=== PATIENT | male | born 2005 | race African-American/Black ===

== ENCOUNTER 2023-12-08 08:39 | Observation (INO) | payer OTHER, SELFPAY ==
[2023-12-08] VITALS (14 sets, daily range): BP systolic 100–144; BP diastolic 36–86; PULSE 56–79; RESP 12–18; TEMP 36.2–36.3; O2SAT 94–100; BMI 26.4
--- NOTE | 2023-12-08 08:46 | DI.US.S_ITS ---
PROCEDURE: US SCROTUM INDICATIONS: left testicular pain TECHNIQUE: Real-time scanning was performed of the scrotum and testicles, with image documentation. Color and pulse Doppler interrogation was performed of both testicles. COMPARISON: None. FINDINGS: Right: Testicle is normal in size at 4.8 x 2.0 x 3.3 cm, and homogenous in echotexture. Epididymis is normal in overall size and morphology. No hydrocele or varicoceles. Left: Testicle is normal in size at 4.6 x 2.3 x 3.2 cm, and homogeneous in echotexture. Epididymis is normal in overall size and morphology. No hydrocele or varicoceles. A punctate calculus is present in the testis, likely secondary to prior trauma. Doppler: Color and pulse Doppler demonstrate normal and symmetric arterial flow in the right testis. There is no flow in the left testis. Other: The scrotal wall is thickened at 6 millimeter bilaterally, likely secondary to reactive edema. IMPRESSION: Acute left testicular torsion without evidence of testicular edema at this time. These findings were communicated by the florist designer to the ordering provider at the time of the dictation. Dictated by: Billy Merchant M.D. on 12/08/2023 at 9:21 Approved by: Billy Merchant M.D. on 12/08/2023 at 9:31
--- NOTE | 2023-12-08 08:54 | ED_ITS ---
HPI - Male Genitourinary General Chief complaint: Urogenital-Male Stated complaint: testicular torsion Time Seen by Provider: 12/08/23 08:46 Source: patient Mode of arrival: Ambulatory History of Present Illness HPI Narrative: 18-year-old healthy male presents today with sudden onset left testicular pain. He reports that he was fine yesterday. He denies any trauma. Not sexually active not concerned for STDs. Is active reports that he does exercise and work out but not heavy lifting. Has significant left testicular pain. Some lower abdominal pain minimal back pain. Has some nausea that comes and goes. Pain to palpation on left testicle. Related Data Previous Rx's Medication Instructions Recorded acetaminophen 325 mg tablet 650 mg (2 x 325 mg) PO Q6H PRN 12/08/23 (Tylenol) mild pain (scale score 1-4) #60 tabs ibuprofen 800 mg tablet 800 mg PO Q8H PRN pain (scale 12/08/23 score 4-6) #30 tabs oxycodone 5 mg tablet 5 mg PO Q8H PRN pain (scale score 12/08/23 7-10) #10 tabs Allergies Allergy/AdvReac Type Severity Reaction Status Date / Time No Known Drug Allergies Allergy Verified 12/08/23 08:44 Patient History Social History household members: spouse Smoking Status: Never smoker Smoking Status: Never smoker alcohol intake frequency: 0-2 drinks per day Substance Use Type: does not use Exam Initial Vital Signs Initial Vital Signs: Vital Signs Temperature 97.1 F L 12/08/23 08:41 Pulse Rate 60 12/08/23 08:41 Respiratory Rate 18 12/08/23 08:41 Blood Pressure 126/59 L 12/08/23 08:41 Pulse Oximetry 100 12/08/23 08:41 Oxygen Delivery Method Room Air 12/08/23 08:41 GENERAL: Alert 18-year-old male appears very uncomfortable CARDIOVASCULAR: peripheral pulses in tact, cap refill <2 sec RESPIRATORY: No respiratory distress, speaks in full sentences without difficulty ABDOMEN: Mild left lower quadrant pain no guarding or rebound : Minimal left flank pain, nurse Sylvia present for exam no pain on left testicle itself there has no abnormality testes are in anatomical position he does have significant pain in inguinal area with some bulging. No erythema. Right side no testicular pain no hernia EXTREMITIES: Normal range of motion, no clubbing or edema. Neurovascularly intact NEUROLOGICAL: Cranial nerves II through XII grossly intact. Normal gait and speech. SKIN: Warm, dry, no petechiae, no rashes or lesions. Course Orders Ordered: Discontinued Medications Acetaminophen (Acetaminophen 325 Mg Tablet) 975 mg PO NOW ONE Stop: 12/08/23 11:33 Acetaminophen (Acetaminophen 325 Mg Tablet) 975 mg PO Q6H PRN PRN Reason: Pain, Mild (1-3) Bacitracin (Bacitracin 28 Gm Oint) 1 applic TOP NOW ONE Stop: 12/08/23 11:43 Last Admin: 12/08/23 11:42 Dose: 1 applic Documented By: KEVON Benzocaine (Benzocaine/Menthol 1 Alin Pkt) 1 each PO PRN PRN PRN Reason: Sore Throat Bupivacaine HCl (Bupivacaine 0.25% (Pf) Vial) 30 ml INJ NOW ONE Stop: 12/08/23 11:37 Last Admin: 12/08/23 11:36 Dose: 20 ml Documented By: KEVON Hydromorphone HCl (Hydromorphone 1 Mg Inj) 1 mg IV NOW ONE Stop: 12/08/23 08:47 Last Admin: 12/08/23 08:57 Dose: 1 mg Documented By: OTTO Hydromorphone HCl (Hydromorphone 0.5 Mg Inj) 0.5 mg IV NOW ONE Stop: 12/08/23 09:32 Last Admin: 12/08/23 09:50 Dose: 0.5 mg Documented By: SHIMA Hydromorphone HCl (Hydromorphone 1 Mg Inj) 0 mg IV Q5MIN PRN PRN Reason: Pain, Mild (1-3) Hydromorphone HCl (Hydromorphone 1 Mg Inj) 0 mg IV Q5MIN PRN PRN Reason: Pain, Moderate (4-6) Hydromorphone HCl (Hydromorphone 1 Mg Inj) 0.5 mg IV Q2H PRN PRN Reason: Breakthrough Pain Lactated Ringer's (Lactated Ringers) 1,000 mls @ 42 mls/hr IV CONT OLE Last Admin: 12/08/23 12:31 Dose: 42 mls/hr Documented By: Infusion: 12/08/23 12:30 Dose: Infused Documented By: Admin: 12/08/23 10:15 Dose: 42 mls/hr Documented By: DAVID Ketorolac Tromethamine (Ketorolac 30 Mg/Ml Vial) 15 mg IV NOW ONE Stop: 12/08/23 08:53 Last Admin: 12/08/23 08:58 Dose: 15 mg Documented By: OTTO Lidocaine HCl (Lidocaine 1% 20 Ml) 20 ml INJ NOW ONE Stop: 12/08/23 11:37 Last Admin: 12/08/23 11:36 Dose: 20 ml Documented By: KEVON Ondansetron HCl (Ondansetron 4 Mg/2 Ml Inj) 4 mg IV NOW ONE Stop: 12/08/23 08:53 Last Admin: 12/08/23 08:58 Dose: 4 mg Documented By: OTTO Ondansetron HCl (Ondansetron 4 Mg/2 Ml Inj) 4 mg IV Q4H PRN PRN Reason: Nausea And Vomiting Oxycodone HCl (Oxycodone Ir 5 Mg Tablet) 5 mg PO PACUNOW PRN PRN Reason: Mild or moderate pain Oxycodone HCl (Oxycodone Ir 5 Mg Tablet) 5 mg PO Q4H PRN PRN Reason: Pain, Moderate (4-6) Oxycodone HCl (Oxycodone Ir 10 Mg Tablet) 10 mg PO Q4HR PRN PRN Reason: Pain, Severe (7-10) Vital Signs Vital signs: Vital Signs - 8 hr 12/08/23 08:41 Temperature 97.1 F L Pulse Rate 60 Respiratory Rate 18 Blood Pressure 126/59 L Pulse Oximetry 100 Oxygen Delivery Method Room Air MDM - Male Genitourinary Lab Data 12/08/23 08:50 12/08/23 08:50 Labs: Lab Results 12/08/23 Range/Units 08:50 WBC 13.8 H (4.5-11.0) X10^3/uL RBC 4.97 (4.5-5.9) X10^6/uL Hgb 15.3 (13.5-17.5) g/dL Hct 45.3 (41-53) % MCV 91.2 (80-100) fL MCH 30.7 (26-34) PG MCHC 33.7 (30-36) % RDW 12.6 (11.6-14.8) % Plt Count 146 L (150-400) X10^3/uL Neut % (Auto) 77.1 H (50-75) % Lymph % (Auto) 13.3 L (25-40) % [place] % (Auto) 7.8 (3-14) % Eos % (Auto) 1.4 L (2-4) % Baso % (Auto) 0.4 (0-2) % Neut # (Auto) 62834 H (8255-3263) /uL Lymph # (Auto) 1800 (6753-0864) /uL [place] # (Auto) 1100 H (0-900) /uL Eos # (Auto) 200 (0-450) /uL Baso # (Auto) 100 (0-100) /uL Sodium 135 L (137-145) mmol/L Potassium 3.6 (3.4-5.1) mmol/L Chloride 101 (98-107) mmol/L Carbon Dioxide 20 L (22-32) mmol/L BUN 12 (9-20) mg/dL Creatinine 1.13 (0.66-1.25) mg/dL Estimated GFR > 60 (>60) mL/min BUN/Creatinine Ratio 10.6 (6-22) Glucose 137 H (70-100) mg/dL Calcium 9.3 (8.4-10.2) mg/dL Total Bilirubin 0.5 (0.2-1.3) mg/dL AST 49 (17-59) IU/L ALT 27 (<50) IU/L Alkaline Phosphatase 57 (38-126) U/L Total Protein 8.0 (6.3-8.2) g/dL Albumin 4.7 (3.5-5.0) g/dL Globulin 3.3 (1.7-4.1) g/dL Albumin/Globulin Ratio 1.4 (1.0-2.8) MDM Narrative Medical decision making narrative: 18-year-old male with sudden-onset left testicular pain. Initial concern was for testicular torsion. No erythema patient does not have concerns for STD. Ultrasound confirms testicular torsion. Dr. Milian, immediately called with tech report of testicular torsion. History exam and preliminary report or consistent with diagnosis. Dr. Milian, in ED to see and evaluate patient will take patient to start Blood work reviewed leukocytosis 13.8, chemistry panel shows a sodium 135 potassium 3.6 qt no one bicarb 20 BUN 12 creatinine 1.1 Patient has not urinated in the emergency depart Pain is much better after Dilaudid and Toradol Discharge Plan Departure Patient Disposition: Admitted to Surgery Clinical Impression: Testicular torsion Admit Date/Time: 12/08/23 10:13 Admit Provider: Jayjay Milian
[2023-12-08] MEDS: HYDROMORPHONE 1 MG INJ IV (08:57)
[2023-12-08] MEDS: KETOROLAC 30 MG/ML VIAL 15 MG IV (08:58)
[2023-12-08] MEDS: ONDANSETRON 4 MG/2 ML INJ IV (08:58)
[2023-12-08 09:01] LABS: Add Manual Diff / Slide Review NO; Basophils Absolute Auto 100 /uL (0-100); Basophils Percent Auto 0.4 % (0-2); Eosinophils Absolute Auto 200 /uL (0-450); Eosinophils Percent Auto 1.4 % (2-4); Hematocrit 45.3 % (41-53); Hemoglobin 15.3 g/dL (13.5-17.5); Lymphocytes Absolute Auto 1800 /uL (1100-4500); Lymphocytes Percent Auto 13.3 % (25-40); Mean Corpuscular HGB Conc 33.7 % (30-36); Mean Corpuscular Hemoglobin 30.7 PG (26-34); Mean Corpuscular Volume 91.2 fL (80-100); Monocytes Absolute Auto 1100 /uL (0-900); Monocytes Percent Auto 7.8 % (3-14); Neutrophils Absolute Auto 10700 /uL (1500-7000); Neutrophils Percent Auto 77.1 % (50-75); Platelet Count 146 X10^3/uL (150-400); Red Blood Cell Count 4.97 X10^6/uL (4.5-5.9); Red Cell Distribution Width 12.6 % (11.6-14.8); White Blood Cell Count 13.8 X10^3/uL (4.5-11.0)
[2023-12-08 09:28] LABS: Alanine Aminotransferase 27 IU/L (<50); Albumin 4.7 g/dL (3.5-5.0); Albumin Globulin Ratio 1.4 (1.0-2.8); Alkaline Phosphatase 57 U/L (38-126); Aspartate Aminotransferase 49 IU/L (17-59); BUN Creatinine Ratio 10.6 (6-22); Bilirubin Total 0.5 mg/dL (0.2-1.3); Blood Urea Nitrogen 12 mg/dL (9-20); Calcium 9.3 mg/dL (8.4-10.2); Carbon Dioxide 20 mmol/L (22-32); Chloride 101 mmol/L (98-107); Estimated Glomerular Filt Rate > 60 mL/min (>60); Globulin 3.3 g/dL (1.7-4.1); Glucose 137 mg/dL (70-100); HEMOLYSIS 48 (0-50); Potassium 3.6 mmol/L (3.4-5.1); Sodium 135 mmol/L (137-145)
[2023-12-08] MEDS: HYDROMORPHONE 0.5 MG INJ IV (09:50)
[2023-12-08] MEDS: LACTATED RINGERS 1,000 ML 42 ML IV ×2 (10:15→12:31)
--- NOTE | 2023-12-08 10:27 | P.HP_ITS ---
History of Present Illness History of Present Illness Date Patient Seen: 12/08/23 Time Patient Seen: 09:45 Chief complaint: testicular torsion Narrative: 18 y/o M presents to ED for evaluation of severe left testicular pain. Pain started at 0400 this morning. Pain was initially a 9/10 and associated with nausea/vomiting. He presented to his PCM at [facility] and was instructed to present to a local ED as soon as possible. His evaluation in the ED was notable for AFVSS, a WBC of 14 and a scrotal US that notes no flow to the left testicle. He otherwise denies any history and/or recent trauma. [facility] Social History Smoking Status: Never smoker Meds Home Medications and Allergies Home Medications Medication Instructions Recorded Confirmed Type No Known Home Medications 12/08/23 12/08/23 History Allergies Allergy/AdvReac Type Severity Reaction Status Date / Time No Known Drug Allergies Allergy Verified 12/08/23 08:44 Review of Systems Review of Systems Narrative: CONSTITUTIONAL: Denies weight loss, fevers, chills. HEENT: Denies change in vision, hearing. RESP: Denies SOB, cough. CV: Denies palpations, CP. GI: Denies abodminal pain, nausea, vomiting, diarrhea. : Denies dysuria, hematuria, inability to void. MSK: Denies myalgia, joint pain. SKIN: Denies rash, pruritus. NEURO: Denies headache, syncope. PSYCH: Denies recent change in mood, anxiety, depression. Exam Vital Signs (past 8 hours): - 12/08/23 08:41 12/08/23 08:46 12/08/23 08:49 Temperature 97.1 F L Pulse Rate 60 60 Respiratory Rate 18 Blood Pressure 126/59 L 144/86 H Pulse Oximetry 100 100 Oxygen Delivery Method Room Air 12/08/23 08:49 12/08/23 09:00 12/08/23 09:30 Temperature Pulse Rate 61 59 L 60 Respiratory Rate Blood Pressure Pulse Oximetry 100 100 100 Oxygen Delivery Method 12/08/23 10:00 12/08/23 10:25 12/08/23 10:25 Temperature Pulse Rate 66 71 Respiratory Rate Blood Pressure 119/55 L Pulse Oximetry 98 99 Oxygen Delivery Method Oxygen Delivery Method Room Air Narrative Exam Narrative: GEN: Alert and oriented X3. No acute distress. Well-nourished. EYES: PERRLA, EOMI. HENT: Moist mucus membranes, no scleral icterus, normal neck ROM. RESP: Unlabored breathing, equal rise and fall of chest bilaterally, no cyanosis appreciated. CV: No peripheral edema, unremarkable heart rate. ABD: Soft, non-tender, non-distended, no palpable masses. : Unremarkable penis, no urethral discharge, no meatal stenosis. Bilaterally descended testicles, right testicle firm, no testicular masses. Left testicle indurated and tender to palpation, no testicular masses. EXT: No edema, clubbing or cyanosis. SKIN: No rashes or lesions. NEURO: No focal neurologic deficits, CN II-XII grossly intact. PSYCH: Cooperative, appropriate mood and affect. Objective Labs 12/08/23 08:50 12/08/23 08:50 Labs: Laboratory Results - last 24 hr 12/08/23 08:50 WBC 13.8 H RBC 4.97 Hgb 15.3 Hct 45.3 MCV 91.2 MCH 30.7 MCHC 33.7 RDW 12.6 Plt Count 146 L Neut % (Auto) 77.1 H Lymph % (Auto) 13.3 L [place] % (Auto) 7.8 Eos % (Auto) 1.4 L Baso % (Auto) 0.4 Neut # (Auto) 32825 H Lymph # (Auto) 1800 [place] # (Auto) 1100 H Eos # (Auto) 200 Baso # (Auto) 100 Sodium 135 L Potassium 3.6 Chloride 101 Carbon Dioxide 20 L BUN 12 Creatinine 1.13 Estimated GFR > 60 BUN/Creatinine Ratio 10.6 Glucose 137 H Calcium 9.3 Total Bilirubin 0.5 AST 49 ALT 27 Alkaline Phosphatase 57 Total Protein 8.0 Albumin 4.7 Globulin 3.3 Albumin/Globulin Ratio 1.4 Assessment & Plan Assessment and plan (1) Testicular torsion: Status: Acute Plan: 18 y/o M noted to have imaging and physical examination consistent w/ an acute left testicular torsion. Discussed the emergent need for surgery to include a detorsion of the left testicle as well as a possible bilateral orchidopexy and possible left orchiectomy. Discussed risks of the procedure to include pain, bleeding, infection, atrophy or loss of the testicle due to compromised blood supply, inadvertent injury to either spermatic cord leading to atrophy or loss of either testicle, poor cosmesis, wound dehiscence and need for additional procedures. He indicated understanding and signed the informed consent. Time-Based Coding :: [TOTAL MINUTES] spent with patient and on the chart (including review of chart, obtaining history, exam, reviewing outside data, placing orders, documenting exam and treatment plan, and counseling patient) on [DATE]. PROFEE Charge Codes Initial inpatient/observation care: 90144
--- NOTE | 2023-12-08 11:27 | SUR.OPER ---
Supine on padded OR bed, head on pillow, arms secured on padded arm boards at <90 degrees abduction, legs uncrossed, safety belt at thigh, tape over blanket over lower legs.
[2023-12-08] MEDS: BUPIVACAINE 0.25% (PF) VIAL 30 ML INJ (11:36)
[2023-12-08] MEDS: LIDOCAINE 1% 20 ML INJ (11:36)
[2023-12-08] MEDS: BACITRACIN 28 GM OINT 1 APPLIC TOP (11:42)
--- NOTE | 2023-12-08 12:07 | P.OP_ITS ---
Procedure & Clinicians Procedure: Scrotal exploration Left testicular detorsion Bilateral orchidopexy Same procedure as scheduled: Yes Indications: 18 y/o M noted to have imaging and physical examination consistent w/ an acute left testicular torsion. Discussed the emergent need for surgery to include a detorsion of the left testicle as well as a possible bilateral orchidopexy and possible left orchiectomy. Surgeon: Jayjay Milian Click Yes if Unassisted: Yes Anesthesia Type: General Operative Notes Findings: 720 degree counterclockwise torsion of left testicle, healthy appearing and viable Bilateral orchidopexy Closure Type: primary Specimen(s): none sent Estimated Blood Loss (mL): 5 Blood products transfused: none Procedure in detail: Patient was identified in the preoperative holding area and consent confirmed. He was then brought to the operating room and placed supine on the operating room table where general anesthesia was induced. All bony prominences were then properly padded and he was prepped and draped in the standard sterile fashion. A surgical timeout was conducted and all members of the operating team were in agreement. A 4cm vertical incision was marked out using a marking pen along his median raphe of his scrotum. This was then incised using a 15 blade. The dissection was then carried down through the subcutaneous tissue and dartos fascia using bovie electrocautery. Attention was then directed to the left hemiscrotum. The left testicle was delivered onto the operative field and the tunica vaginalis was incised. The testicle appeared healthy and viable, however, a 720 degree counter-clockwise torsion of his left spermatic cord was appreciated. This was reduced and the testicle was returned into the left hemiscrotum in the correct anatomic position with the left lateral sulcus facing the lateral aspect of his left hemiscrotum. The testicle was then secured to the inferior and lateral portion of his scrotum using two separate stitches of 4-0 PDS. The dartos of the left hemiscrotum was then reapproximated using running 3-0 Vicryl. The procedure was then repeated in similar fashion on the right hemiscrotum. No torsion was appreciated and it was also secured to the inferior and lateral portion of the right hemiscrotum using 4-0 PDS. The dartos of the right hemiscrotum was then closed in similar fashion. The wound was then copiously irrigated and investigated for hemostasis, which was excellent at case end. The incision was then closed in two separate layers. Dartos was reapproximated using 3-0 Vicryl in a running fashion. The skin edges were then reapproximated using 3-0 Chromic in a running baseball stitch fashion. Bacitracin was then applied to the incision. A total of 25cc of 1:1 mixture of 1% Lidocaine plain and 0.5% Marcaine plain was used for incision anesthetic and to perform a bilateral cord block. Fluff gauze and scrotal support was then placed over the incision. Anesthesia was reversed, he was extubated in the OR and transferred to the PACU in stable condition for recovery. Complications: none Post-operative Condition: stable Disposition: PACU Plan for aftercare: Discharge home from PACU. Will return to clinic in 4 weeks for wound and symp alba check.
== END 2023-12-08 13:33 | disposition home or self-care (01) ==
LOC: ED 10:12 → AC 10:14
PROVIDERS: Admitting Provider Urology; Emergency Provider Emergency Medicine; Referring Provider Emergency Medicine; Visit Provider Urology
PROC: 0VSB0ZZ Reposition Left Testis, Open Approach (ICD-10-PCS; CPT 54600; principal; 2023-12-08 10:15)
DX: N44.00 Torsion of testis, unspecified (principal)
CPT/HCPCS: 54600; 76870; 80053; 85025; 93975; 96374; 96375; 96376; 99284; G0378; J1100; J1170; J1885; J2250; J2405; J2704; J3010